=== PATIENT | male | born 1985 | race Caucasian/White ===

== ENCOUNTER 2016-10-29 13:43 | Emergency (ER) | payer SELFPAY ==
[2016-10-29 14:03] VITALS: BP 131/72
[2016-10-29 14:38] LABS: CHLORIDE,CL 104 mmol/L (101-111); SODIUM,NA 141 mmol/L (135-145)
[2016-10-29 14:39] LABS: ACETAMINOPHEN < 10
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
== END 2016-10-29 15:14 ==
LOC: DL.ED 13:43
DX: F29 Unspecified psychosis not due to a substance or known physiological condition (principal); F19.10 Other psychoactive substance abuse, uncomplicated; F17.210 Nicotine dependence, cigarettes, uncomplicated
CPT/HCPCS: 36415; 80053; 80305; 81001; 83735; 84443; 85025; 99285; G0480; 99282